=== PATIENT | male | born 1985 | race Caucasian/White ===

== ENCOUNTER 2017-02-23 09:15 | Outpatient (RCR) | payer OTHER ==
[~2017-02-23 09:15] MED LIST: NEXIUM 20MG20 MG PO
== END 2017-04-25 11:29 | disposition home or self-care (01) ==
LOC: MKS.ESL.PT 09:15
DX: M54.2 Cervicalgia (principal)
CPT/HCPCS: G8990-GP; G8991-GP

== ENCOUNTER 2017-09-29 08:34 | Day surgery (SDC) | payer OTHER ==
[~2017-09-29] VITALS: Ht 177.8 cm; Wt 106.0 kg
[2017-09-29] MEDS ORDERED: ZOCOR 40MG40 MG PO (08:48)
[2017-09-29] MEDS ORDERED: LIALDA 1.2 GM1.2 GM PO (08:48)
[2017-09-29] MEDS ORDERED: PRIL40 PO (08:48)
[2017-09-29 09:02] VITALS: BP 122/88; PULSE 86; TEMP 99
[2017-09-29 10:30] VITALS: BP 104/72; PULSE 70; TEMP 97.7
[2017-09-29 10:45] VITALS: BP 109/81; PULSE 67
[2017-09-29 11:00] VITALS: BP 110/75; PULSE 67
== END 2017-09-29 11:15 | disposition home or self-care (01) ==
LOC: SDCO 08:34
DX: K62.1 Rectal polyp (principal); K21.0 Gastro-esophageal reflux disease with esophagitis; K50.10 Crohn's disease of large intestine without complications; R19.7 Diarrhea, unspecified; E78.00 Pure hypercholesterolemia, unspecified; E66.9 Obesity, unspecified; Z68.33 Body mass index [BMI] 33.0-33.9, adult; Z87.891 Personal history of nicotine dependence
CPT/HCPCS: J2250; J3010; J7030